=== PATIENT | female | born 1960 | race Caucasian/White ===

== ENCOUNTER 2016-11-16 18:29 | Emergency (ER) | payer OTHER ==
[~2016-11-16] VITALS: Ht 160 cm; Wt 119.2 kg
[~2016-11-16 18:29] MED LIST: AMITIZA24 MICROGR PO; ANESTACON10 ML VG; ATIVAN0.5 MG PO; CALCIUM CITRAT250 MG PO; CARAFATE1 GM PO; COBAL-10001000 MCG/2 IM; COMPAZINE10 MG PO; CYANOCOBAL1000 MCG/2 IM; CYMBALTA30 MG PO; DILAUDID4 MG PO; DURAGESIC100 MICROG TD; Dilaudid PO; Ecotrin PO; FLONASE16 G1 BOTH NARES; FLOVENT DISKUS1 DIS2 IH; Feosol PO; HYDROCHLOROTHIA25 MG PO; Hydrodiuril,Oretic,E PO; LIDODERM 5% P1 PATCH TD; LYSINE,L-LYSIN500 MG PO; Levothroid,Synthroid PO; MACROBID100 MG PO; ONE-A-DAY ESSE1 EAC1 PO; OXYCONTIN40 MG PO; OxyCODONE PO; PriLOSEC PO; SENOKOT S,PE1 TABLET PO; SOMA350 MG PO; SYNTHROID175 MCG PO; Skelaxin PO; THERAGRAN1 TABLET PO; TOBREX5 ML RIGHT EYE; VITAMIN E400 UNIT PO; Vitamin D, Drisdol PO; ZANAFLEX4 M1 PO; ZANAFLEX4 MG PO; ZYRTEC10 M3 PO; ZyrTEC PO
[2016-11-16 18:55] LABS: POINT-OF-CARE METER ID UU13113778
[2016-11-16 20:30] LABS: CHLORIDE 104 mEq/L (99-109); POTASSIUM 4.3 mEq/L (3.7-5.4); SODIUM 136 mEq/L (136-147)
[2016-11-16 20:32] LABS: GLUCOSE 215 mg/dL (70-99)
[2016-11-16 20:34] LABS: ANION GAP 8 MEQ/L (2-14)
[2016-11-16 20:36] LABS: ALKALINE PHOSPHATASE 109 IU/L (3-129); GFR ESTIMATE (CALCULATED) > 59 mL/min/
[2016-11-16 20:37] LABS: UREA NITROGEN (BUN) 11 mg/dL (9-23)
[2016-11-16 20:50] LABS: HEMATOCRIT 38.1 % (36.0-46.0); MCH 26.3 PG (29.0-34.0); MCHC 31.8 G/DL (30.0-36.0); MCV 82.8 FL (83-99); RBC DIS.WIDTH-CV 16.2 % (11.8-14.6); RBC DIS.WIDTH-SD 48.6 % (39-53); WHITE BLOOD COUNT 3.3 K/uL (4.1-10.2)
[2016-11-16 21:00] LABS: IMM.PLATELET FRACTION 14.5 (1-7)
[2016-11-16 21:02] LABS: PLATELET COUNT 26 K/uL (156-360)
[2016-11-16] MEDS ORDERED: NARCAN4 MG NS (21:17)
[2016-11-16 21:29] VITALS: BP 157/75
[2016-11-17] MEDS ORDERED: NARCAN4 MG NS (20:08)
== END 2016-11-16 21:41 | disposition home or self-care (01) ==
LOC: EME 18:29
PROVIDERS: Emergency Medicine
DX: K75.81 Nonalcoholic steatohepatitis (NASH) (principal); D69.6 Thrombocytopenia, unspecified; F11.10 Opioid abuse, uncomplicated; G89.29 Other chronic pain; E11.9 Type 2 diabetes mellitus without complications; M79.7 Fibromyalgia; I10 Essential (primary) hypertension; K21.9 Gastro-esophageal reflux disease without esophagitis; Z98.84 Bariatric surgery status
CPT/HCPCS: 80053; 82948; 85027; 99281; 99283

== ENCOUNTER 2016-11-17 17:37 | Emergency (ER) | payer OTHER ==
[~2016-11-17] VITALS: Ht 160 cm; Wt 119.0 kg
[~2016-11-17 17:37] MED LIST changes: +NARCAN4 MG NS
[2016-11-17 18:36] LABS: ADD MIUA? YES; BILIRUBIN NEGATIVE; BLOOD SMALL; COLOR YELLOW ((YELLOW)); GLUCOSE (STRIP) NEGATIVE; KETONES 5; LEUKOCYTES NEGATIVE; NITRITE NEGATIVE; PROTEIN (STRIP) 30; SPECIFIC GRAVITY 1.015 (1.000-1.030)
[2016-11-17 18:40] LABS: BACTERIA RARE /HPF; EPITHELIAL CELLS RARE /HPF; MUCUS NONE SEEN /LPF; RED BLOOD CELLS 0-5 /HPF (0-5); WHITE BLOOD CELLS 0-5 /HPF (0-5)
[2016-11-17 18:46] LABS: CHLORIDE 106 mEq/L (99-109); POTASSIUM 4.1 mEq/L (3.7-5.4); SODIUM 138 mEq/L (136-147)
[2016-11-17 18:49] LABS: GLUCOSE 165 mg/dL (70-99)
[2016-11-17 18:50] LABS: HEMATOCRIT 39.6 % (36.0-46.0); MCH 26.6 PG (29.0-34.0); MCHC 32.6 G/DL (30.0-36.0); MCV 81.6 FL (83-99); RBC DIS.WIDTH-CV 16.2 % (11.8-14.6); RBC DIS.WIDTH-SD 47.9 % (39-53); RED BLOOD COUNT 4.85 M/uL (3.80-5.20)
[2016-11-17 18:50] LABS: ANION GAP 12 MEQ/L (2-14)
[2016-11-17 18:51] LABS: TOTAL BILIRUBIN 1.1 mg/dL (0.0-1.0)
[2016-11-17 18:52] LABS: ALKALINE PHOSPHATASE 113 IU/L (3-129); SERUM ETHYL ALCOHOL < 10 mg/dL
[2016-11-17 18:53] LABS: GFR ESTIMATE (CALCULATED) > 59 mL/min/
[2016-11-17 18:54] LABS: UREA NITROGEN (BUN) 13 mg/dL (9-23)
[2016-11-17 19:05] LABS: THC CANNABINOIDS NEGATIVE (50 ng/mL)
[2016-11-17 19:06] LABS: ADD MEDTOX COMMENT Y; AMPHETAMINE NEGATIVE (500 ng/mL); BARBITURATES NEGATIVE (200 ng/mL); BENZODIAZEPINES NEGATIVE (150 ng/mL); COCAINE NEGATIVE (150 ng/mL); INTERNAL CONTROLS VALID? YES; METHADONE NEGATIVE (200 ng/mL); METHAMPHETAMINE NEGATIVE (500 ng/mL); OPIATES (MORPHINE) PRESUMPTIVE POSITIVE (100 ng/mL); OXYCODONE PRESUMPTIVE POSITIVE (100 ng/mL); PHENCYCLIDINE NEGATIVE (25 ng/mL); PROPOXYPHENE NEGATIVE (300 ng/mL); TRICYCLIC ANTIDEPRESSANTS NEGATIVE (300 ng/mL)
[2016-11-17 19:19] LABS: IMM.PLATELET FRACTION 16.3 (1-7); PLATELET COUNT 33 K/uL (156-360)
[2016-11-17] MEDS ORDERED: NARCAN4 MG NS (20:08)
[2016-11-17 20:30] VITALS: BP 143/60
== END 2016-11-17 20:33 | disposition home or self-care (01) ==
LOC: EME 17:37
PROVIDERS: Emergency Medicine
DX: D69.6 Thrombocytopenia, unspecified (principal); F11.10 Opioid abuse, uncomplicated; K72.90 Hepatic failure, unspecified without coma; R41.82 Altered mental status, unspecified; G89.29 Other chronic pain; E11.9 Type 2 diabetes mellitus without complications; M79.7 Fibromyalgia; I10 Essential (primary) hypertension; K21.9 Gastro-esophageal reflux disease without esophagitis; Z98.84 Bariatric surgery status
CPT/HCPCS: 70450; 80053; 81003; 82140; 84999; 85027; 99281; 99284; G0480

== ENCOUNTER → 2017-06-01 | Outpatient (CLI) | payer OTHER ==
[~2017-06-01] MED LIST changes: +ALDACTONE100 MG PO; +AZELASTINE137 MCG/0. BOTH NARES; +CONSTULOSE10 GM/15 M PO; +LEVEMIR FL100 UNIT/1 SC; +NOVOLIN,HU100 UNITS1 SC; +NOVOLIN,HU100 UNITS1 SQ; +OMEPRAZOLE40 M1 PO; +PREDNISONE10 MG PO; +PRINIVIL5 MG PO; +PROMACTA25 MG PO; +SYNTHROID137 MCG PO
== END | disposition home or self-care (01) ==
LOC: NUC 09:30
DX: C50.412 Malignant neoplasm of upper-outer quadrant of left female breast (principal)
CPT/HCPCS: 78195; A9541

== ENCOUNTER → 2017-06-02 | Day surgery (SDC) | payer OTHER ==
[~2017-06-02] VITALS: Ht 160 cm; Wt 103.4 kg
[~2017-06-02] MED LIST changes: -PREDNISONE10 MG PO
[2017-06-02 09:03] VITALS: BP 115/53
[2017-06-02 09:32] LABS: HEMATOCRIT 32.9 % (36.0-46.0); MCV 82.3 FL (83-99); RBC DIS.WIDTH-CV 15.6 % (11.8-14.6); RBC DIS.WIDTH-SD 46.3 % (39-53); WHITE BLOOD COUNT 8.2 K/uL (4.1-10.2)
[2017-06-02 09:44] LABS: IMM.PLATELET FRACTION 16.8 (1-7); MEAN PLAT.VOLUME 12.4 uM^3 (9.5-12.4); PLATELET COUNT 46 K/uL (156-360)
== END | disposition home or self-care (01) ==
LOC: SDC
PROVIDERS: Surgery
DX: C50.412 Malignant neoplasm of upper-outer quadrant of left female breast (principal); D69.6 Thrombocytopenia, unspecified; Z53.09 Procedure and treatment not carried out because of other contraindication
CPT/HCPCS: 78999; 85025; 85027

== ENCOUNTER 2017-06-10 05:34 | Day surgery (SDC) | payer OTHER ==
[~2017-06-10] VITALS: Ht 160 cm; Wt 103.4 kg
[~2017-06-10 05:34] MED LIST changes: +PREDNISONE10 MG PO
[2017-06-10 06:22] VITALS: BP 159/77
[2017-06-10 06:29] LABS: POINT-OF-CARE METER ID UU14174212
[2017-06-10 07:15] LABS: HEMATOCRIT 29.9 % (36.0-46.0); IMM.PLATELET FRACTION 14.7 (1-7); MCH 26.8 PG (29.0-34.0); MCHC 32.4 G/DL (30.0-36.0); MCV 82.6 FL (83-99); PLAT.SUFFICIENCY DECREASED; PLATELET COUNT 45 K/uL (156-360); RBC DIS.WIDTH-CV 15.4 % (11.8-14.6); RBC DIS.WIDTH-SD 46.5 % (39-53); RED BLOOD COUNT 3.62 M/uL (3.80-5.20)
[2017-06-10 15:35] LABS: POINT-OF-CARE METER ID UU13113675
[2017-06-10 16:15] VITALS: BP 143/69
[2017-06-10 18:19] LABS: HEMATOCRIT 32.8 % (36.0-46.0); MCH 26.6 PG (29.0-34.0); MCV 83.2 FL (83-99); RBC DIS.WIDTH-CV 15.7 % (11.8-14.6); RBC DIS.WIDTH-SD 47.7 % (39-53); RED BLOOD COUNT 3.94 M/uL (3.80-5.20); WHITE BLOOD COUNT 8.4 K/uL (4.1-10.2)
[2017-06-10 18:39] LABS: PLAT.SUFFICIENCY DECREASED
[2017-06-10 18:41] LABS: PLATELET COUNT 70 K/uL (156-360)
[2017-06-10 19:48] VITALS: BP 120/64
[2017-06-10 21:48] LABS: POINT-OF-CARE METER ID UU14208750
[2017-06-11 00:15] VITALS: BP 118/57
[2017-06-11 03:09] VITALS: BP 124/57
[2017-06-11 05:53] LABS: HEMATOCRIT 28.7 % (36.0-46.0); MCH 26.7 PG (29.0-34.0); MCHC 32.1 G/DL (30.0-36.0); MCV 83.2 FL (83-99); PLATELET COUNT 55 K/uL (156-360); RBC DIS.WIDTH-CV 15.8 % (11.8-14.6); RBC DIS.WIDTH-SD 47.6 % (39-53); RED BLOOD COUNT 3.45 M/uL (3.80-5.20); WHITE BLOOD COUNT 6.4 K/uL (4.1-10.2)
[2017-06-11 06:31] LABS: POINT-OF-CARE METER ID UU14162508
[2017-06-11 06:45] VITALS: BP 113/56
[2017-06-11 11:47] LABS: POINT-OF-CARE METER ID UU14162508
[2017-06-11] MEDS ORDERED: HYDROMORPHONE HC4 MG PO (12:23)
[2017-06-11] MEDS ORDERED: CLEOCIN300 MG PO (12:23)
[2017-06-11 12:30] VITALS: BP 116/56
== END 2017-06-11 13:28 | disposition home or self-care (01) ==
LOC: SDC 05:34 → NUC 07:00 → SDC 07:00 → 2EASTP 14:17 → 2SOUTH 14:17 → ENRESERV 14:36 → 2EASTP 16:16
PROVIDERS: Surgery
PROC: 07B60ZX Excision of Left Axillary Lymphatic, Open Approach, Diagnostic (ICD-10-PCS; principal; 2017-06-10)
PROC: 0HHV0NZ Insertion of Tissue Expander into Bilateral Breast, Open Approach (ICD-10-PCS; principal; 2017-06-10)
PROC: 0HTV0ZZ Resection of Bilateral Breast, Open Approach (ICD-10-PCS; principal; 2017-06-10)
DX: C50.412 Malignant neoplasm of upper-outer quadrant of left female breast (principal); Z90.13 Acquired absence of bilateral breasts and nipples; I10 Essential (primary) hypertension; E11.9 Type 2 diabetes mellitus without complications; E03.9 Hypothyroidism, unspecified; K74.60 Unspecified cirrhosis of liver; K75.81 Nonalcoholic steatohepatitis (NASH); Z98.84 Bariatric surgery status; Z87.891 Personal history of nicotine dependence; Z79.4 Long term (current) use of insulin; D69.6 Thrombocytopenia, unspecified; G47.33 Obstructive sleep apnea (adult) (pediatric); M79.7 Fibromyalgia
CPT/HCPCS: 78195; 78999; 82948; 85027; 88305; 88307; 88309; A9541; G0378; J0330; J1100; J1170; J1815; J2405; J3010; J7120; J7512; S0020

== ENCOUNTER 2017-08-26 09:50 | Inpatient (IN) | payer OTHER ==
[~2017-08-26] VITALS: Ht 160 cm; Wt 103.0 kg
[~2017-08-26 09:50] MED LIST changes: +CLEOCIN300 MG PO; +HYDROMORPHONE HC4 MG PO; -NOVOLIN,HU100 UNITS1 SQ; -PROMACTA25 MG PO; +PROMACTA50 MG PO
[2017-08-26 11:04] LABS: HEMATOCRIT 30.9 % (36.0-46.0); MCH 25.5 PG (29.0-34.0); MCV 77.3 FL (83-99); RBC DIS.WIDTH-CV 15.9 % (11.8-14.6); RBC DIS.WIDTH-SD 44.1 % (39-53); WHITE BLOOD COUNT 0.7 K/uL (4.1-10.2)
[2017-08-26 11:09] LABS: CHLORIDE 98 mEq/L (99-109); POTASSIUM 4.7 mEq/L (3.7-5.4)
[2017-08-26 11:10] LABS: MAGNESIUM 1.6 mg/dL (1.3-2.7); SODIUM 125 mEq/L (136-147)
[2017-08-26 11:11] LABS: GLUCOSE 161 mg/dL (70-99)
[2017-08-26 11:13] LABS: ANION GAP 6 MEQ/L (2-14); TOTAL BILIRUBIN 1.3 mg/dL (0.0-1.0)
[2017-08-26 11:15] LABS: ALKALINE PHOSPHATASE 93 IU/L (3-129); GFR ESTIMATE (CALCULATED) > 59 mL/min/
[2017-08-26 11:16] LABS: UREA NITROGEN (BUN) 8 mg/dL (9-23)
[2017-08-26 11:21] LABS: TROP-I INTERPRETATION NEGATIVE; TROPONIN-I < 0.01 ng/mL (0.0-0.30)
[2017-08-26 11:47] LABS: IMM.PLATELET FRACTION 24.4 (1-7)
[2017-08-26 11:52] LABS: ABS NEUTROPHIL COUNT 0; ANISOCYTOSIS 1+; ATYPICAL LYMPHOCYTE 14.6 %; BAND NEUTROPHILS 1.8 % (0-8.0); BASOPHILS 0.9 %; EOSINOPHIL ABS CT 0; EOSINOPHILS 2.7 % (0-5.0); INSTRUMENT ABS NEUTROPHIL CT 0.1 K/uL; MICROCYTOSIS 1+; MYELOCYTES 0.9 %; NUCLEATED RBC'S 3.6; PLAT.SUFFICIENCY DECREASED; POIKILOCYTOSIS 1+; SMUDGE CELLS 1.8
[2017-08-26 11:53] LABS: PLATELET COUNT 46 K/uL (156-360); SEG.NEUTROPHILS 1.8 % (46.0-76.0)
[2017-08-26 15:09] LABS: ADD MIUA? NO; BILIRUBIN NEGATIVE; BLOOD NEGATIVE; COLOR YELLOW ((YELLOW)); GLUCOSE (STRIP) NEGATIVE; KETONES NEGATIVE; LEUKOCYTES NEGATIVE; NITRITE NEGATIVE; PROTEIN (STRIP) NEGATIVE; SPECIFIC GRAVITY 1.015 (1.000-1.030); UCUL ADDED? NO; UROBILINOGEN 0.2 MG/DL (0.2-1.0)
[2017-08-26] MEDS ORDERED: CLARITIN,ALAVAR10 MG PO (15:57)
[2017-08-26] MEDS ORDERED: CYMBALTA30 MG PO (15:57)
[2017-08-26] MEDS ORDERED: LETROZOLE2.5 MG PO (15:58)
[2017-08-26] MEDS ORDERED: DEXAMETHASONE4 MG PO (15:58)
[2017-08-26] MEDS ORDERED: MYCOSTATIN 100,60 ML PO (15:58)
[2017-08-26] MEDS ORDERED: RANITIDINE HCL150 MG PO (15:59)
[2017-08-26] MEDS ORDERED: LOPERAMIDE2 M1 PO (16:02)
[2017-08-26] MEDS ORDERED: TYLENOL EXTRA500 MG PO (16:02)
[2017-08-26 16:39] LABS: POINT-OF-CARE METER ID UU14100415
[2017-08-26 20:13] VITALS: BP 133/59
[2017-08-26 22:38] LABS: POINT-OF-CARE METER ID UU14302474
[2017-08-26 23:28] VITALS: BP 119/58
[2017-08-27 03:30] VITALS: BP 121/59; BP 139/80
[2017-08-27 06:00] LABS: POINT-OF-CARE METER ID UU13113725
[2017-08-27 06:53] LABS: ANION GAP 5 MEQ/L (2-14); CHLORIDE 103 MEQ/L (99-109); GFR ESTIMATE (CALCULATED) > 59 mL/min/; GLUCOSE 125 mg/dL (70-99); SAMPLE HEMOLYSIS CHECK 0; SAMPLE ICTERIC CHECK 0; SAMPLE LIPEMIA CHECK 0; SODIUM 130 MEQ/L (136-147); UREA NITROGEN (BUN) 7 mg/dL (9-23)
[2017-08-27 07:03] LABS: HEMATOCRIT 29.7 % (36.0-46.0); MCH 25.4 PG (29.0-34.0); MCHC 32.7 G/DL (30.0-36.0); MCV 77.7 FL (83-99); NRBC (%) 2.3 /100 WBC (0-0); RBC DIS.WIDTH-CV 16.3 % (11.8-14.6); RBC DIS.WIDTH-SD 45.9 % (39-53); RED BLOOD COUNT 3.82 M/uL (3.80-5.20)
[2017-08-27 07:15] LABS: ABS NEUTROPHIL COUNT 0.3; ANISOCYTOSIS 1+; BAND NEUTROPHILS 2.5 % (0-8.0); BASOPHILS 2.5 %; BURR CELLS 1+; EOSINOPHIL ABS CT 0; EOSINOPHILS 1.2 % (0-5.0); IMM.PLATELET FRACTION 23.7 (1-7); INSTRUMENT ABS NEUTROPHIL CT 0.3 K/uL; METAMYELOCYTES 1.3 %; MICROCYTOSIS 1+; MYELOCYTES 3.8 %; NUCLEATED RBC'S 3.8; OVALOCYTES 1+; PLAT.SUFFICIENCY VERY DECREASED; PLATELET COUNT 36 K/uL (156-360); POIKILOCYTOSIS 1+; SEG.NEUTROPHILS 21.2 % (46.0-76.0); SMUDGE CELLS 8.8
[2017-08-27 07:32] LABS: C DIFF TOXIN POSITIVE (NEGATIVE); PROBE CHECK PASS
[2017-08-27 07:34] LABS: LYMPHOCYTES 32.5 % (15.0-45.0); WHITE BLOOD COUNT 1.3 K/uL (4.1-10.2)
[2017-08-27 08:02] VITALS: BP 129/57
[2017-08-27 11:20] LABS: POINT-OF-CARE METER ID UU14302474
[2017-08-27 11:27] VITALS: BP 129/70
[2017-08-27 15:28] VITALS: BP 134/70
[2017-08-27 16:03] LABS: POINT-OF-CARE METER ID UU14302474
[2017-08-27 20:09] VITALS: BP 118/57
[2017-08-27 21:45] LABS: POINT-OF-CARE METER ID UU14302474
[2017-08-27 23:54] VITALS: BP 108/53; BP 118/57
[2017-08-28 05:56] LABS: POINT-OF-CARE METER ID UU14302474
[2017-08-28 06:31] LABS: HEMATOCRIT 29.9 % (36.0-46.0); MCH 24.6 PG (29.0-34.0); MCHC 32.4 G/DL (30.0-36.0); MCV 75.9 FL (83-99); NRBC (%) 0.8 /100 WBC (0-0); RBC DIS.WIDTH-CV 16.1 % (11.8-14.6); RBC DIS.WIDTH-SD 44.1 % (39-53); RED BLOOD COUNT 3.94 M/uL (3.80-5.20); WHITE BLOOD COUNT 3.6 K/uL (4.1-10.2)
[2017-08-28 06:40] LABS: ANION GAP 8 MEQ/L (2-14); CHLORIDE 103 MEQ/L (99-109); GFR ESTIMATE (CALCULATED) > 59 mL/min/; GLUCOSE 110 mg/dL (70-99); POTASSIUM 3.5 MEQ/L (3.7-5.4); SAMPLE HEMOLYSIS CHECK 0; SAMPLE ICTERIC CHECK 0; SAMPLE LIPEMIA CHECK 0; SODIUM 133 MEQ/L (136-147); UREA NITROGEN (BUN) 5 mg/dL (9-23)
[2017-08-28 07:16] LABS: ABS NEUTROPHIL COUNT 2.4; ANISOCYTOSIS 1+; BASOPHILS 3.1 %; BURR CELLS 1+; EOSINOPHIL ABS CT 0; HYPOCHROMASIA 1+; IMM.PLATELET FRACTION 27.8 (1-7); INSTRUMENT ABS NEUTROPHIL CT 1.7 K/uL; LYMPHOCYTES 14.4 % (15.0-45.0); MACROCYTES 1+; MYELOCYTES 2.1 %; PLAT.SUFFICIENCY VERY DECREASED; PLATELET COUNT 38 K/uL (156-360); POIKILOCYTOSIS 1+; POLYCHROMASIA 1+
[2017-08-28 08:16] VITALS: BP 123/58
[2017-08-28 11:33] LABS: POINT-OF-CARE METER ID UU13113774
[2017-08-28] MEDS ORDERED: VANCOCIN 250 M250 MG PO ×2 (13:31→17:05)
[2017-08-28] MEDS ORDERED: FLAGYL500 MG PO ×2 (13:32→17:05)
== END 2017-08-28 15:43 | disposition home or self-care (01) | DRG 809 ==
LOC: EME 09:50 → EDOF 11:32 → 5EAST 11:32 → ENRESERV 11:33 → 5EAST 19:33 → ENPENDDIS 08-28 → 5EAST 08-28 15:43
PROVIDERS: Emergency Medicine; Internal Medicine
DX: D61.810 Antineoplastic chemotherapy induced pancytopenia (principal); A04.72 Enterocolitis due to Clostridium difficile, not specified as recurrent; R50.81 Fever presenting with conditions classified elsewhere; C50.919 Malignant neoplasm of unspecified site of unspecified female breast; B37.0 Candidal stomatitis; E87.1 Hypo-osmolality and hyponatremia; K75.81 Nonalcoholic steatohepatitis (NASH); K72.90 Hepatic failure, unspecified without coma; E66.01 Morbid (severe) obesity due to excess calories; Z68.41 Body mass index [BMI] 40.0-44.9, adult; E03.9 Hypothyroidism, unspecified; D69.59 Other secondary thrombocytopenia; E87.6 Hypokalemia; I10 Essential (primary) hypertension; E11.9 Type 2 diabetes mellitus without complications; K74.60 Unspecified cirrhosis of liver; T45.1X5A Adverse effect of antineoplastic and immunosuppressive drugs, initial encounter; K44.9 Diaphragmatic hernia without obstruction or gangrene; G47.33 Obstructive sleep apnea (adult) (pediatric); M79.7 Fibromyalgia; D63.8 Anemia in other chronic diseases classified elsewhere; E86.1 Hypovolemia; Z85.3 Personal history of malignant neoplasm of breast; Z90.13 Acquired absence of bilateral breasts and nipples; Z86.19 Personal history of other infectious and parasitic diseases; Z79.4 Long term (current) use of insulin; Z79.811 Long term (current) use of aromatase inhibitors; Z98.84 Bariatric surgery status
CPT/HCPCS: 71020; 80048; 80053; 81003; 82948; 83605; 83735; 83930; 83935; 84300; 84484; 85025; 87040; 87493; 87502; 87506; 90686; J0692; J1450; J1815; J2405; J7030; S0028; S0030

== ENCOUNTER → 2017-09-21 | Outpatient (CLI) | payer OTHER ==
[~2017-09-21] MED LIST changes: +CLARITIN,ALAVAR10 MG PO; +DEXAMETHASONE4 MG PO; +FLAGYL500 MG PO; +LETROZOLE2.5 MG PO; +LOPERAMIDE2 M1 PO; +MYCOSTATIN 100,60 ML PO; +RANITIDINE HCL150 MG PO; +TYLENOL EXTRA500 MG PO; +VANCOCIN 250 M250 MG PO
== END | disposition home or self-care (01) ==
LOC: PICC 12:52
DX: C50.919 Malignant neoplasm of unspecified site of unspecified female breast (principal); Z92.21 Personal history of antineoplastic chemotherapy

== ENCOUNTER 2017-11-04 01:37 | Inpatient (IN) | payer OTHER ==
[~2017-11-04] VITALS: Ht 160 cm; Wt 96.0 kg
[2017-11-04] VITALS (37 sets, daily range): BP systolic 110–165; BP diastolic 56–89
[~2017-11-04 01:37] MED LIST changes: +MOUTHWASH PO; -MYCOSTATIN 100,60 ML PO
[2017-11-04 02:48] LABS: HEMATOCRIT 24.2 % (36.0-46.0); HEMOGLOBIN 7.9 G/DL (11.9-15.5); MCH 26.4 PG (29.0-34.0); MCHC 32.6 G/DL (30.0-36.0); MCV 80.9 FL (83-99); RBC DIS.WIDTH-CV 20.4 % (11.8-14.6); RED BLOOD COUNT 2.99 M/uL (3.80-5.20); WHITE BLOOD COUNT 11.8 K/uL (4.1-10.2)
[2017-11-04 02:49] LABS: PLATELET COUNT 226 K/uL (156-360)
[2017-11-04 02:54] LABS: ALBUMIN 2.6 g/dL (3.2-4.8); CHLORIDE 109 mEq/L (99-109); POTASSIUM 4.3 mEq/L (3.7-5.4); SODIUM 134 mEq/L (136-147)
[2017-11-04 02:56] LABS: GLUCOSE 240 mg/dL (70-99); TOTAL PROTEIN 5.4 g/dL (6.4-8.3)
[2017-11-04 02:57] LABS: INTER. NORMALIZED RATIO 1.5
[2017-11-04 02:58] LABS: TOTAL BILIRUBIN 0.8 mg/dL (0.0-1.0)
[2017-11-04 03:00] LABS: ALKALINE PHOSPHATASE 90 IU/L (3-129); CREATININE 0.7 mg/dL (0.6-1.3); GFR ESTIMATE (CALCULATED) > 59 mL/min/
[2017-11-04 03:01] LABS: UREA NITROGEN (BUN) 15 mg/dL (9-23)
[2017-11-04 03:02] LABS: AST (GOT) 27 IU/L (2-34)
[2017-11-04 03:03] LABS: ALT (GPT) 17 IU/L (3-49); LIPASE 12 U/L (1.0-51.0)
[2017-11-04 06:03] LABS: HEMATOCRIT 23.5 % (36.0-46.0); HEMOGLOBIN 7.6 G/DL (11.9-15.5); MCH 26.4 PG (29.0-34.0); MCHC 32.3 G/DL (30.0-36.0); MCV 81.6 FL (83-99); PLATELET COUNT 208 K/uL (156-360); RBC DIS.WIDTH-CV 20.4 % (11.8-14.6); RBC DIS.WIDTH-SD 60.6 % (39-53); RED BLOOD COUNT 2.88 M/uL (3.80-5.20); WHITE BLOOD COUNT 11.3 K/uL (4.1-10.2)
[2017-11-04 16:03] LABS: BASOPHIL (%) 0.5 % (0-1); EOSINOPHIL (%) 1.3 % (0-5); EOSINOPHIL COUNT 0.1 K/uL (0-0.3); HEMOGLOBIN 7.4 G/DL (11.9-15.5); IMMATURE GRANULOCYTE (%) 0.4 % (0.0-0.7); LYMPHOCYTE (%) 22.9 % (15-42); LYMPHOCYTE COUNT 1.3 K/uL (1.0-2.8); MCH 26.8 PG (29.0-34.0); MCHC 32.2 G/DL (30.0-36.0); MCV 83.3 FL (83-99); MONOCYTE (%) 8.6 % (3-12); MONOCYTE COUNT 0.5 K/uL (0-0.8); NEUTROPHIL (%) 66.3 % (45-76); NEUTROPHIL COUNT 3.7 K/uL (1.8-6.4); RBC DIS.WIDTH-CV 19.1 % (11.8-14.6); RBC DIS.WIDTH-SD 58.4 % (39-53); RED BLOOD COUNT 2.76 M/uL (3.80-5.20); WHITE BLOOD COUNT 5.6 K/uL (4.1-10.2)
[2017-11-04 16:18] LABS: ANISOCYTOSIS 1+; HYPOCHROMASIA 1+; MICROCYTOSIS 1+; PLAT.SUFFICIENCY DECREASED; POIKILOCYTOSIS 1+; POLYCHROMASIA 1+
[2017-11-04 16:24] LABS: PLATELET COUNT 102 K/uL (156-360)
[2017-11-04 16:53] LABS: FIBRINOGEN 223 mg/dL (150-450); INTER. NORMALIZED RATIO 1.4
[2017-11-04 16:55] LABS: PTT 34.2 SEC (25-37)
[2017-11-04 23:26] LABS: HEMATOCRIT 26.3 % (36.0-46.0); HEMOGLOBIN 8.8 G/DL (11.9-15.5)
[2017-11-05] VITALS (20 sets, daily range): BP systolic 105–157; BP diastolic 45–90
[2017-11-05 05:27] LABS: INTER. NORMALIZED RATIO 1.3
[2017-11-05 05:29] LABS: CHLORIDE 109 MEQ/L (99-109); POTASSIUM 4.1 MEQ/L (3.7-5.4); SODIUM 140 MEQ/L (136-147)
[2017-11-05 05:30] LABS: PTT 33.7 SEC (25-37)
[2017-11-05 05:35] LABS: CREATININE 0.6 MG/DL (0.6-1.3); GFR ESTIMATE (CALCULATED) > 59 mL/min/; GLUCOSE 173 mg/dL (70-99); UREA NITROGEN (BUN) 10 mg/dL (9-23)
[2017-11-05 05:37] LABS: ALBUMIN 2.6 G/DL (3.2-4.8); ALKALINE PHOSPHATASE 71 IU/L (3-129); ALT (GPT) 16 IU/L (3-49); AST (GOT) 32 IU/L (2-34); CHLORIDE 110 MEQ/L (99-109); CREATININE 0.6 MG/DL (0.6-1.3); GFR ESTIMATE (CALCULATED) > 59 mL/min/; GLUCOSE 175 mg/dL (70-99); POTASSIUM 3.9 MEQ/L (3.7-5.4); SODIUM 139 MEQ/L (136-147); UREA NITROGEN (BUN) 10 mg/dL (9-23)
[2017-11-05 05:41] LABS: TOTAL BILIRUBIN 1.3 MG/DL (0.0-1.0)
[2017-11-05 07:49] LABS: BASOPHIL (%) 0.8 % (0-1); EOSINOPHIL (%) 3.6 % (0-5); EOSINOPHIL COUNT 0.1 K/uL (0-0.3); HEMATOCRIT 28.3 % (36.0-46.0); IMMATURE GRANULOCYTE (%) 0.3 % (0.0-0.7); LYMPHOCYTE (%) 30.7 % (15-42); LYMPHOCYTE COUNT 1.2 K/uL (1.0-2.8); MCH 26.7 PG (29.0-34.0); MCHC 31.8 G/DL (30.0-36.0); MONOCYTE (%) 7.9 % (3-12); MONOCYTE COUNT 0.3 K/uL (0-0.8); NEUTROPHIL (%) 56.7 % (45-76); NEUTROPHIL COUNT 2.2 K/uL (1.8-6.4); PLATELET COUNT 99 K/uL (156-360); RBC DIS.WIDTH-CV 18.1 % (11.8-14.6); RBC DIS.WIDTH-SD 55.2 % (39-53); WHITE BLOOD COUNT 3.9 K/uL (4.1-10.2)
[2017-11-05 07:55] LABS: RED BLOOD COUNT 3.37 M/uL (3.80-5.20)
[2017-11-05 12:41] LABS: HEMATOCRIT 26.5 % (36.0-46.0); HEMOGLOBIN 8.7 G/DL (11.9-15.5); MCV 84.7 FL (83-99)
[2017-11-05 18:29] LABS: HEMATOCRIT 26.6 % (36.0-46.0); HEMOGLOBIN 8.4 G/DL (11.9-15.5); MCV 85.8 FL (83-99)
[2017-11-05] MEDS ORDERED: ENDOCET 5-3251 EACH PO (20:34)
[2017-11-05] MEDS ORDERED: FEMARA2.5 MG PO (20:36)
[2017-11-05] MEDS ORDERED: DILAUDID4 MG PO (20:40)
[2017-11-05] MEDS ORDERED: OMEPRAZOLE40 M1 PO (21:19)
[2017-11-06] VITALS (8 sets, daily range): BP systolic 0–151; BP diastolic 0–67
[2017-11-06 01:04] LABS: HEMATOCRIT 25.3 % (36.0-46.0); HEMOGLOBIN 8.3 G/DL (11.9-15.5); MCV 84.6 FL (83-99)
[2017-11-06 06:56] LABS: BASOPHIL (%) 0.8 % (0-1); EOSINOPHIL (%) 3.5 % (0-5); EOSINOPHIL COUNT 0.1 K/uL (0-0.3); HEMATOCRIT 24.9 % (36.0-46.0); IMMATURE GRANULOCYTE (%) 0.4 % (0.0-0.7); LYMPHOCYTE (%) 29.6 % (15-42); LYMPHOCYTE COUNT 0.8 K/uL (1.0-2.8); MCH 27.7 PG (29.0-34.0); MCHC 32.1 G/DL (30.0-36.0); MCV 86.2 FL (83-99); MONOCYTE (%) 7.4 % (3-12); MONOCYTE COUNT 0.2 K/uL (0-0.8); NEUTROPHIL (%) 58.3 % (45-76); NEUTROPHIL COUNT 1.5 K/uL (1.8-6.4); RBC DIS.WIDTH-CV 18.3 % (11.8-14.6); RBC DIS.WIDTH-SD 57.3 % (39-53); RED BLOOD COUNT 2.89 M/uL (3.80-5.20); WHITE BLOOD COUNT 2.6 K/uL (4.1-10.2)
[2017-11-06 07:15] LABS: PLAT.SUFFICIENCY DECREASED; PLATELET COUNT 73 K/uL (156-360)
[2017-11-06 13:09] LABS: EOSINOPHIL (%) 3.1 % (0-5); EOSINOPHIL COUNT 0.1 K/uL (0-0.3); HEMATOCRIT 26.1 % (36.0-46.0); HEMOGLOBIN 8.3 G/DL (11.9-15.5); IMMATURE GRANULOCYTE (%) 0.3 % (0.0-0.7); LYMPHOCYTE (%) 30.7 % (15-42); LYMPHOCYTE COUNT 0.9 K/uL (1.0-2.8); MCH 27.3 PG (29.0-34.0); MCHC 31.8 G/DL (30.0-36.0); MCV 85.9 FL (83-99); MONOCYTE (%) 7.7 % (3-12); MONOCYTE COUNT 0.2 K/uL (0-0.8); NEUTROPHIL (%) 57.2 % (45-76); NEUTROPHIL COUNT 1.6 K/uL (1.8-6.4); PLATELET COUNT 71 K/uL (156-360); RBC DIS.WIDTH-CV 18.3 % (11.8-14.6); RED BLOOD COUNT 3.04 M/uL (3.80-5.20); WHITE BLOOD COUNT 2.9 K/uL (4.1-10.2)
[2017-11-06 21:48] LABS: EOSINOPHIL (%) 3.3 % (0-5); EOSINOPHIL COUNT 0.1 K/uL (0-0.3); HEMOGLOBIN 7.8 G/DL (11.9-15.5); IMMATURE GRANULOCYTE (%) 0.3 % (0.0-0.7); LYMPHOCYTE (%) 30.8 % (15-42); LYMPHOCYTE COUNT 0.9 K/uL (1.0-2.8); MCH 27.9 PG (29.0-34.0); MCHC 32.5 G/DL (30.0-36.0); MCV 85.7 FL (83-99); MONOCYTE COUNT 0.2 K/uL (0-0.8); NEUTROPHIL (%) 56.6 % (45-76); NEUTROPHIL COUNT 1.7 K/uL (1.8-6.4); PLAT.SUFFICIENCY DECREASED; PLATELET COUNT 73 K/uL (156-360); RBC DIS.WIDTH-CV 18.3 % (11.8-14.6); RBC DIS.WIDTH-SD 56.1 % (39-53)
[2017-11-07] VITALS (9 sets, daily range): BP systolic 119–142; BP diastolic 54–67
[2017-11-07 04:40] LABS: ALBUMIN 2.6 g/dL (3.2-4.8); CHLORIDE 109 mEq/L (99-109); POTASSIUM 3.6 mEq/L (3.7-5.4); SODIUM 140 mEq/L (136-147)
[2017-11-07 04:42] LABS: GLUCOSE 129 mg/dL (70-99)
[2017-11-07 04:43] LABS: TOTAL PROTEIN 4.9 g/dL (6.4-8.3)
[2017-11-07 04:44] LABS: TOTAL BILIRUBIN 0.7 mg/dL (0.0-1.0)
[2017-11-07 04:46] LABS: ALKALINE PHOSPHATASE 88 IU/L (3-129); CREATININE 0.7 mg/dL (0.6-1.3); GFR ESTIMATE (CALCULATED) > 59 mL/min/
[2017-11-07 04:47] LABS: UREA NITROGEN (BUN) 5 mg/dL (9-23)
[2017-11-07 04:48] LABS: AST (GOT) 39 IU/L (2-34)
[2017-11-07 04:49] LABS: ALT (GPT) 20 IU/L (3-49)
[2017-11-07 04:50] LABS: BASOPHIL (%) 1.2 % (0-1); EOSINOPHIL COUNT 0.1 K/uL (0-0.3); HEMATOCRIT 24.8 % (36.0-46.0); HEMOGLOBIN 7.9 G/DL (11.9-15.5); LYMPHOCYTE COUNT 0.8 K/uL (1.0-2.8); MCH 27.2 PG (29.0-34.0); MCHC 31.9 G/DL (30.0-36.0); MCV 85.5 FL (83-99); MONOCYTE (%) 6.3 % (3-12); MONOCYTE COUNT 0.2 K/uL (0-0.8); NEUTROPHIL (%) 57.5 % (45-76); NEUTROPHIL COUNT 1.5 K/uL (1.8-6.4); PLATELET COUNT 70 K/uL (156-360); RBC DIS.WIDTH-CV 18.4 % (11.8-14.6); RBC DIS.WIDTH-SD 56.3 % (39-53); WHITE BLOOD COUNT 2.5 K/uL (4.1-10.2)
[2017-11-08] VITALS (9 sets, daily range): BP systolic 107–132; BP diastolic 52–62
[2017-11-08 06:33] LABS: HEMATOCRIT 26.5 % (36.0-46.0); HEMOGLOBIN 8.5 G/DL (11.9-15.5); MCH 27.9 PG (29.0-34.0); MCHC 32.1 G/DL (30.0-36.0); MCV 86.9 FL (83-99); PLATELET COUNT 56 K/uL (156-360); RBC DIS.WIDTH-CV 18.5 % (11.8-14.6); RBC DIS.WIDTH-SD 57.5 % (39-53); RED BLOOD COUNT 3.05 M/uL (3.80-5.20); WHITE BLOOD COUNT 2.6 K/uL (4.1-10.2)
[2017-11-08 06:58] LABS: PLAT.SUFFICIENCY DECREASED
[2017-11-08 10:38] LABS: C DIFF TOXIN POSITIVE (NEGATIVE)
[2017-11-09 07:01] LABS: HEMATOCRIT 28.6 % (36.0-46.0); HEMOGLOBIN 9.1 G/DL (11.9-15.5); MCH 27.9 PG (29.0-34.0); MCHC 31.8 G/DL (30.0-36.0); MCV 87.7 FL (83-99); RBC DIS.WIDTH-CV 18.8 % (11.8-14.6); RBC DIS.WIDTH-SD 59.4 % (39-53); RED BLOOD COUNT 3.26 M/uL (3.80-5.20)
[2017-11-09 07:42] LABS: BASOPHIL (%) 0.7 % (0-1); EOSINOPHIL COUNT 0.1 K/uL (0-0.3); IMMATURE GRANULOCYTE (%) 0.3 % (0.0-0.7); LYMPHOCYTE (%) 28.1 % (15-42); LYMPHOCYTE COUNT 0.9 K/uL (1.0-2.8); MONOCYTE (%) 7.6 % (3-12); MONOCYTE COUNT 0.2 K/uL (0-0.8); NEUTROPHIL (%) 60.3 % (45-76); NEUTROPHIL COUNT 1.8 K/uL (1.8-6.4); PLAT.SUFFICIENCY DECREASED; PLATELET COUNT 62 K/uL (156-360)
[2017-11-09 08:13] VITALS: BP 129/84
[2017-11-09] MEDS ORDERED: COMPAZINE10 MG PO (08:53)
[2017-11-09 11:04] VITALS: BP 133/82
[2017-11-09] MEDS ORDERED: VANCOCIN HCL125 MG PO (12:32)
== END 2017-11-09 14:17 | disposition home or self-care (01) | DRG 377 ==
LOC: EME → EDBD 01:37 → EME 01:37 → 4WEST 05:13 → EDOF 05:13 → ENRESERV 05:22 → EDOF 06:05 → ENRESERV 06:06 → 4WEST 07:13 → ENRESERV 11-05 22:59 → 5SOUTH 11-06 08:53
PROVIDERS: Emergency Medicine; Hospitalist; Internal Medicine; Internal Medicine Critical Care Medicine; Internal Medicine Gastroenterology; Surgery
DX: K92.2 Gastrointestinal hemorrhage, unspecified (principal); A04.72 Enterocolitis due to Clostridium difficile, not specified as recurrent; D62 Acute posthemorrhagic anemia; K28.9 Gastrojejunal ulcer, unspecified as acute or chronic, without hemorrhage or perforation; K55.20 Angiodysplasia of colon without hemorrhage; D61.818 Other pancytopenia; C50.919 Malignant neoplasm of unspecified site of unspecified female breast; I81 Portal vein thrombosis; R00.0 Tachycardia, unspecified; R42 Dizziness and giddiness; R55 Syncope and collapse; I10 Essential (primary) hypertension; E11.9 Type 2 diabetes mellitus without complications; K21.9 Gastro-esophageal reflux disease without esophagitis; G47.33 Obstructive sleep apnea (adult) (pediatric); K44.9 Diaphragmatic hernia without obstruction or gangrene; E03.9 Hypothyroidism, unspecified; Z87.11 Personal history of peptic ulcer disease; K72.90 Hepatic failure, unspecified without coma; K74.60 Unspecified cirrhosis of liver; K75.81 Nonalcoholic steatohepatitis (NASH); M79.7 Fibromyalgia; M81.0 Age-related osteoporosis without current pathological fracture; M48.00 Spinal stenosis, site unspecified; F41.9 Anxiety disorder, unspecified; F32.9 Major depressive disorder, single episode, unspecified; E66.01 Morbid (severe) obesity due to excess calories; Z68.37 Body mass index [BMI] 37.0-37.9, adult; Z80.0 Family history of malignant neoplasm of digestive organs; Z90.13 Acquired absence of bilateral breasts and nipples; Z80.51 Family history of malignant neoplasm of kidney; Z90.710 Acquired absence of both cervix and uterus; Z96.652 Presence of left artificial knee joint; Z98.84 Bariatric surgery status
CPT/HCPCS: 71045; 74176; 74177; 80048; 80053; 82948; 83690; 85014; 85018; 85025; 85025 91; 85027; 85384; 85610; 85730; 86850; 86900; 86901; 86920; 87493; 87641; 99281; 99284; C9113; J0696; J1815; J2354; J2704; J2765; J7030; J7050; P9016; P9017; Q0164